=== PATIENT | female | born 1985 | race Caucasian/White ===

== ENCOUNTER 2016-07-25 21:54 | Emergency (ER) | payer OTHER ==
[2016-07-25 22:01] VITALS: O2SAT 95
--- NOTE | 2016-07-25 22:26 | EDPHY ---
H & P Time Seen by Provider: 07/25/16 22:05 HPI/ROS: CHIEF COMPLAINT: Left foot swelling and pain HISTORY OF PRESENT ILLNESS: 31-year-old female presents with left foot swelling and pain. Onset of foot pain today. Pain is moderate and increases with weight-bearing. Associated with warmth and erythema. No known injury. Fever. ROS: No numbness, weakness, bleeding, syncopal episode, recent injury. Past Medical/Surgical History: Denies Smoking Status: Never smoked Physical Exam: Alert and oriented x3, no acute distress. Extremities: left foot-tenderness, warmth and swelling over the lateral aspect of the MTP and the 5th toe Skin: intact Neuro: Motor and sensory intact Vascular: Capillary refill brisk distally. Constitutional: Initial Vital Signs Temperature (C) 36.3 C 07/25/16 21:58 Heart Rate 59 L 07/25/16 21:58 Respiratory Rate 16 07/25/16 21:58 Blood Pressure 108/69 07/25/16 21:58 O2 Sat (%) 95 07/25/16 21:58 O2 Delivery Mode Room Air Allergies/Adverse Reactions: amoxicillin Allergy (Verified 07/25/16 21:57) cat dander Allergy (Verified 07/25/16 21:57) Home Medications: Medication Instructions Recorded Cephalexin [Keflex (*)] 500 mg PO QID #40 cap 07/25/16 Medical Decision Making ED Course/Re-evaluation: Keflex 500 mg orally given. Departure - Departure Disposition: Home, Routine, Self-Care Clinical Impression: Cellulitis of foot, left Condition: Good Instructions: Cellulitis (ED) Additional Instructions: Keep your leg elevated as much as possible. Take the antibiotic as prescribed. Ibuprofen 600 mg 3 times daily while the pain persists. Return for worsening symptoms or any concerns. Referrals: Madelaine Knott MD [Medical Doctor] - 3-4 days, if not improved Prescriptions: Cephalexin [Keflex (*)] 500 mg PO QID #40 cap
[2016-07-25] MEDS ORDERED: CEPHALEXIN 500 MG CAP PO ONE (22:32)
[2016-07-25 23:11] VITALS: BP 104/64; PULSE 78; RESP 20; TEMP 98.1
== END 2016-07-25 23:11 | disposition home or self-care (01) ==
DX: L03.116 Cellulitis of left lower limb (principal)

== ENCOUNTER → 2016-09-06 | Outpatient (CLI) | payer OTHER | LOC: BMCIMAGING 09:35 | PROVIDERS: ATTEND Podiatrist Foot & Ankle Surgery | DX: M79.672 Pain in left foot (principal); M79.671 Pain in right foot ==

== ENCOUNTER → 2017-03-06 | Outpatient (CLI) | payer OTHER | LOC: FIMAGING 09:14 | DX: Z34.01 Encounter for supervision of normal first pregnancy, first trimester (principal); Z3A.12 12 weeks gestation of pregnancy ==

== ENCOUNTER → 2017-04-17 | Outpatient (CLI) | payer OTHER | LOC: FIMAGING 07:30 | PROVIDERS: ATTEND Advanced Practice Midwife | DX: Z34.02 Encounter for supervision of normal first pregnancy, second trimester (principal); Z3A.18 18 weeks gestation of pregnancy ==

== ENCOUNTER → 2017-05-15 | Outpatient (CLI) | payer OTHER | LOC: FIMAGING 09:23 | PROVIDERS: ATTEND Advanced Practice Midwife | DX: Z36.89 Encounter for other specified antenatal screening (principal); Z3A.22 22 weeks gestation of pregnancy ==